=== PATIENT | male | born 1980 | race Hispanic/Latino ===

== ENCOUNTER 2024-06-25 13:32 | Emergency (ER) | payer SELFPAY ==
[2024-06-25] MEDS ORDERED: ONDANSETRON 4 MG (ODT) TAB ONE (15:07)
[2024-06-25 15:59] LABS: SARS-CoV-2 Antigen CONTROL BLUE LINE VIS/BG OK; SARS-CoV-2 Antigen Rapid Res Negative (Negative)
--- NOTE | 2024-06-25 16:26 | EDPHYS ---
Physician Documentation [facility] Name: Charly France Age: 43 yrs Sex: Male : 1980 Arrival Date: 06/25/2024 Time: 13:32 Bed 24 Private MD: ED Physician Kaushik John HPI: 06/25 16:27 This 43 yrs old Male presents to ER via Ambulatory with complaints of Cold ms3 Symptoms. 16:27 43-year-old male with no past medical history presents to the emergency department for ms3 a cold that began on Tuesday. Patient states he had some nausea and vomiting started yesterday. Patient denies pain at this time.. Historical: - Allergies: 13:41 No Known Allergies; iw - Home Meds: 13:41 None [Active]; iw - PMHx: 13:41 None; iw - PSHx: 13:41 None; iw - Immunization history:: Adult Immunizations not up to date. - Infectious Disease History:: Denies. - Social history:: Smoking status: Patient denies any tobacco usage or history of. Smoking status: Reported history of juuling and/or vaping. ROS: 16:27 Constitutional: Negative for fever, and chills. Neck: Negative for injury, pain, and ms3 swelling, Cardiovascular: Negative for chest pain, and palpitations. 16:27 MS/Extremity: Negative for injury and deformity, Skin: Negative for injury, rash, and discoloration, 16:27 ENT: Positive for sinus congestion, 16:27 Respiratory: Positive for cough, Exam: 16:27 Constitutional: This is a well developed, well nourished patient who is awake, alert, ms3 and in no acute distress. Head/Face: Normocephalic, atraumatic. Chest/axilla: Normal chest wall appearance and motion. Nontender with no deformity. Cardiovascular: Regular rate and rhythm with a normal S1 and S2. No gallops, murmurs, or rubs. Normal PMI, no JVD. No pulse deficits. Respiratory: Lungs have equal breath sounds bilaterally, clear to auscultation and percussion. No rales, rhonchi or wheezes noted. No increased work of breathing, no retractions or nasal flaring. Abdomen/GI: Soft, non-tender, with normal bowel sounds. No distension or tympany. No guarding or rebound. No evidence of tenderness throughout. Skin: Warm, dry with normal turgor. Normal color with no rashes, no lesions, and no evidence of cellulitis. MS/ Extremity: Pulses equal, no cyanosis. Neurovascular intact. Full, normal range of motion. Vital Signs: 13:39 BP 133 / 95; Pulse 88; Resp 18; Temp 98.4; Pulse Ox 100% ; Weight 88.45 kg; Height 5 iw ft. 6 in. ; Pain 0/10; 13:39 Body Mass Index 31.47 (88.45 kg, 167.64 cm) iw 13:39 Pain Scale: Adult iw MDM: 14:18 Patient medically screened. ms3 16:27 Differential Diagnosis: Upper Respiratory Infection Viral Syndrome Other Flu versus ms3 COVID. Data reviewed: vital signs, nurses notes, lab test result(s), and as a result, I will discharge patient. Counseling: I had a detailed discussion with the patient and/or guardian regarding the historical points, exam findings, and any diagnostic results supporting the discharge/admit diagnosis, lab results, the need for outpatient follow up, to return to the emergency department if symptoms worsen or persist or if there are any questions or concerns that arise at home. Special discussion: I discussed with the patient/guardian in detail that at this point there is no indication for admission to the hospital. It is understood, however, that if the symptoms persist or worsen the patient needs to return immediately for re-evaluation. ED course: Discussed labs with patient. Patient to follow-up with primary care physician in 2 to 3 days. Patient understands and agrees with plan. All questions were answered. Return precautions discussed include worsening symptoms, or any other concerns. 06/25 14:09 Order name: SARS RAPID; Complete Time: 16:11 ms3 06/25 14:09 Order name: Flu; Complete Time: 16:11 ms3 Administered Medications: 15:10 Drug: Ondansetron PO 4 mg PO once Route: PO; jb4 Disposition Summary: 06/25/24 16:26 Discharge Ordered Notes: Location: Home ms3 Condition: Stable ms3 Diagnosis - Acute upper respiratory infection, unspecified ms3 Followup: ms3 - With: Bipin Zaldivar DO - When: 2 - 3 days - Reason: Recheck today's complaints Discharge Instructions: - Discharge Summary Sheet ms3 - Upper Respiratory Infection, Adult ms3 Forms: - Medication Reconciliation Form ms3 - Antibiotic Education ms3 - Prescription Opioid Use ms3 - Patient Portal Instructions ms3 - Leadership Thank You Letter ms3 Prescriptions: - Claritin 10 mg Oral Tablet - take 1 tablet ORAL route once daily As needed; 30 tablet; Refills: 0, Product ms3 Selection Permitted Signatures: Dispatcher [employer] Nahed Erickson RN RN iw Dayron Lim RN RN jb4 Kaushik John DO DO ms3
--- NOTE | 2024-06-25 16:26 | ER ---
Nurse's Notes [facility] Name: Charly France Age: 43 yrs Sex: Male : 1980 Arrival Date: 06/25/2024 Time: 13:32 Bed 24 Private MD: Diagnosis: Acute upper respiratory infection, unspecified Presentation: 06/25 13:39 Chief complaint: Patient states: sick with a cold and yesterday I started throwing up , iw every time I try to eat I'm nauseated. Coronavirus screen: Client presents with at least one sign or symptom that may indicate coronavirus-19. Ebola Screen: No symptoms or risks identified at this time. Initial Sepsis Screen: Does the patient meet any 2 criteria? No. Patient's initial sepsis screen is negative. Does the patient have a suspected source of infection? No. Patient's initial sepsis screen is negative. Risk Assessment: Do you want to hurt yourself or someone else? Patient reports no desire to harm self or others. Onset of symptoms was June 20, 2024. 13:39 Method Of Arrival: Ambulatory iw 13:39 Acuity: MANUEL 3 iw Historical: - Allergies: 13:41 No Known Allergies; iw - Home Meds: 13:41 None [Active]; iw - PMHx: 13:41 None; iw - PSHx: 13:41 None; iw - Immunization history:: Adult Immunizations not up to date. - Infectious Disease History:: Denies. - Social history:: Smoking status: Patient denies any tobacco usage or history of. Smoking status: Reported history of juuling and/or vaping. Screenin:27 [facility] ED Fall Risk Assessment (Adult) History of falling in the last 3 months, jb4 including since admission No falls in past 3 months (0 pts) Confusion or Disorientation No (0 pts) Intoxicated or Sedated No (0 pts) Impaired Gait No (0 pts) Mobility Assist Device Used No (0 pt) Altered Elimination No (0 pt) Score/Fall Risk Level 0 - 2 = Low Risk Oriented to surroundings, Maintained a safe environment. Abuse screen: Denies threats or abuse. Nutritional screening: No deficits noted. Tuberculosis screening: No symptoms or risk factors identified. Assessment: 15:27 General: Appears in no apparent distress. uncomfortable, Behavior is calm, cooperative. jb4 Pain: Denies pain. Neuro: Level of Consciousness is awake, alert, obeys commands, Oriented to person, place, time, situation. Cardiovascular: Patient's skin is warm and dry. Respiratory: Airway is patent Respiratory effort is even, unlabored, Respiratory pattern is regular, symmetrical. GI: Abdomen is flat, non-distended, Reports nausea, vomiting. : No signs and/or symptoms were reported regarding the genitourinary system. EENT: No signs and/or symptoms were reported regarding the EENT system. Derm: Skin is intact, Skin is pink, warm \T\ dry. Musculoskeletal: Circulation, motion, and sensation intact. Range of motion: intact in all extremities. 16:34 Reassessment: Patient appears in no apparent distress at this time. Patient and/or jb4 family updated on plan of care and expected duration. Pain level reassessed. Patient is alert, oriented x 3, equal unlabored respirations, skin warm/dry/pink. Vital Signs: 13:39 BP 133 / 95; Pulse 88; Resp 18; Temp 98.4; Pulse Ox 100% ; Weight 88.45 kg; Height 5 iw ft. 6 in. ; Pain 0/10; 13:39 Body Mass Index 31.47 (88.45 kg, 167.64 cm) iw 13:39 Pain Scale: Adult iw ED Course: 13:36 Patient arrived in ED. ra3 13:41 Triage completed. iw 13:41 Arm band placed on. iw 13:45 Kaushik John DO is Attending Physician. ms3 15:10 Dayron Lim, MELANIE is Primary Nurse. jb4 15:22 SARS RAPID Sent. jb4 15:22 Flu Sent. jb4 15:27 Patient has correct armband on for positive identification. Bed in low position. Call jb4 light in reach. Side rails up X 1. Provided Education on: plan of care. 16:25 Bipin Zaldivar DO is Referral Physician. ms3 16:34 No provider procedures requiring assistance completed. Patient did not have IV access jb4 during this emergency room visit. Administered Medications: 15:10 Drug: Ondansetron PO 4 mg PO once Route: PO; jb4 Medication: 15:27 VIS not applicable for this client. jb4 Outcome: 16:26 Discharge ordered by . ms3 16:34 Discharged to home ambulatory, jb4 16:34 Condition: stable 16:34 Discharge instructions given to patient, Instructed on discharge instructions, follow up and referral plans. medication usage, Demonstrated understanding of instructions, follow-up care, medications, Prescriptions given X 1, 16:36 Patient left the ED. jb4 Signatures: Nahed Ho RN RN iw Dayron Lim RN RN jb4 Kaushik John DO DO ms3 Judie Cobb ra3
[2024-06-25 16:52] VITALS: BP 133/95; TEMP 98.4; O2SAT 100
== END 2024-06-25 16:36 | disposition home or self-care (01) ==
LOC: ER 13:32
DX: J06.9 Acute upper respiratory infection, unspecified (principal); Z11.52 Encounter for screening for COVID-19
CPT/HCPCS: 36415; 87804; 87811; 99283; Q0162